=== PATIENT | male | born 2000 | race Two or more races ===

== ENCOUNTER 2018-01-17 23:51 | Emergency (ER) | payer OTHER ==
[2018-01-18] VITALS: BP 151/98
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
[2018-01-18] MEDS ORDERED: ACETAMINOPHEN 500 MG TAB PO ONE (00:12)
[2018-01-18] MEDS ORDERED: IBUPROFEN 800 MG TAB PO ONE (00:12)
== END 2018-01-18 03:04 | disposition home or self-care (01) ==
DX: S16.1XXA Strain of muscle, fascia and tendon at neck level, initial encounter (principal); V43.52XA Car driver injured in collision with other type car in traffic accident, initial encounter; Y92.410 Unspecified street and highway as the place of occurrence of the external cause; Y99.8 Other external cause status; Y93.89 Activity, other specified